=== PATIENT | female | born 1970 ===

== ENCOUNTER 2022-11-15 05:40 | Day surgery (SDC) | payer OTHER ==
[2022-11-15] MEDS ORDERED: IBU400 MG PO (10:17)
[2022-11-15] MEDS ORDERED: ZITHROMAX500 MG PO (10:17)
== END 2022-11-15 12:35 | disposition home or self-care (01) ==
LOC: CIR.AMB 05:40
PROVIDERS: ATTEND Obstetrics & Gynecology
DX: N84.1 Polyp of cervix uteri (principal); N84.0 Polyp of corpus uteri; Z20.822 Contact with and (suspected) exposure to COVID-19